=== PATIENT | female | born 1965 | race Caucasian/White ===

== ENCOUNTER 2018-05-20 08:42 | Emergency (ER) | payer OTHER ==
[~2018-05-20] VITALS: Ht 165.1 cm; Wt 103.9 kg
[2018-05-20] MEDS ORDERED: COZAAR100 MG (09:08)
[2018-05-20] MEDS ORDERED: LISINOPRIL10 MG (09:09)
== END 2018-05-20 10:33 | disposition home or self-care (01) ==
LOC: ER 08:42
DX: S80.01XA Contusion of right knee, initial encounter (principal); W18.39XA Other fall on same level, initial encounter; Y93.89 Activity, other specified; Y92.89 Other specified places as the place of occurrence of the external cause; Y99.8 Other external cause status